=== PATIENT | female | born 1985 | race Caucasian/White ===

== ENCOUNTER 2020-04-04 13:44 | Emergency (ER) | payer MEDICAID ==
[~2020-04-04] VITALS: Ht 180.3 cm; Wt 65.0 kg
[2020-04-04 13:50] VITALS: BP 137/90
--- NOTE | 2020-04-04 14:50 | RAD ---
ANKLE LEFT 3V History: Reason: INJURY / Spl. Instructions: / History: Technique: 3 views left ankle. Comparison: None. Findings: Normal alignment. Symmetric mortise. Lateral ankle soft tissue swelling. No fracture. Impression: 1. No acute osseous abnormality. 2. Lateral ankle soft tissue swelling. Electronically signed by: Doug Herrera DO (04/04/2020 2:47 PM) [id number]
--- NOTE | 2020-04-04 15:01 | PHYS DOC ---
General Adult EDM: Chief Complaint: ANKLE PROBLEM HPI: HPI: 34 yo F who denies any past medical history presents the ED with complaints of left lateral ankle pain that started last night around 6 PM after patient was moving a table and it landed on her left osei. States she sprained her left ankle approximately 2 months ago, had no x-rays at that time. LMP was 3 weeks ago. No recent antibiotics or fluoroquinolone use. Is a daily tobacco user. Did not her head or lose consciousness. Is not on any anticoagulants/takes no medications. Is able to bear weight. ROS: Denies associated fever, chills, cough, dyspnea, sore throat, headache, neck stiffness, chest pain, dyspnea, nausea, vomiting, diarrhea, sensory or motor deficits, skin color changes. Allergies: Allergies: Allergies Coded Allergies Type Severity Reaction Last Updated Verified No Known Drug Allergies 04/04/20 No Physical Exam: PE: Constitutional: Well developed, well nourished, no acute distress, non-toxic appearance. [] HENT: Normocephalic, atraumatic, bilateral external ears normal, oropharynx moist, no oral exudates, nose normal. [] Eyes: EOMI, conjunctiva normal, no discharge. [] Neck: Normal range of motion, no tenderness, supple, no stridor. [] Cardiovascular:Heart rate regular rhythm, no murmur [] Lungs & Thorax: Bilateral breath sounds clear to auscultation [] Abdomen: Bowel sounds normal, soft, no tenderness, no masses, no pulsatile masses. [] Skin: Warm, dry, no erythema, Back: No tenderness, no CVA tenderness. [] Extremities: No tenderness, no cyanosis, no clubbing, ROM intact, left lateral malleoli with swelling, petechia over distal anterior left osei Neurologic: Alert and oriented X 3, normal motor function, normal sensory function, no focal deficits noted. [] Psychologic: Affect normal, judgement normal, mood normal. [] EKG: EKG: [] Radiology/Procedures: Radiology/Procedures: []IMAGING REPORT Signed PATIENT: LIBAN BAZAN ACCOUNT: [id number] : 1985 LOCATION: ER AGE: 34 SEX: F EXAM STATUS: REG ER ORD. PHYSICIAN: ROBERT VAZQUEZ DO REASON: INJURY PROCEDURE: ANKLE LEFT 3V ANKLE LEFT 3V History: Reason: INJURY / Spl. Instructions: / History: Technique: 3 views left ankle. Comparison: None. Findings: Normal alignment. Symmetric mortise. Lateral ankle soft tissue swelling. No fracture. Impression: 1. No acute osseous abnormality. 2. Lateral ankle soft tissue swelling. Electronically signed by: Doug Herrera DO (04/04/2020 2:47 PM) [id number] DICTATED AND SIGNED BY: DOUG HERRERA DO DATE: 04/04/20 1447 CC: PCP,UNKNOWN; ROBERT VAZQUEZ DO ~ Course & Med Decision Making: Course & Med Decision Making Pertinent Labs and Imaging studies reviewed. (See chart for details) Concern for traumatic left ankle sprain -patient will be provided splint and crutches, recommended conservative management w/rice and nsaids. Strict ED return precautions given for severe pain and neurovascular deficits. Encouraged urgent outpatient follow-up with PMD and orthopedic surgery. Life-threatening processes were considered but are low suspicion at this time, given history and physical exam. All patient's questions were answered and pt was stable at time of discharge. Differential includes fracture, dislocation, laceration, osteomyelitis, compartment syndrome, neurovascular injury or deficit, infection (abscess, cellulitis, septic arthritis) I spoken with the patient and her caregivers. I explained the patient's condition, diagnoses and treatment plan based on the information available to me at this time. I have answered the patient and her caregiver's questions and addressed any concerns. The patient and her caregivers have a good understanding of patient's diagnosis, condition and treatment plan as can be expected at this point. Vital signs have been stable. Patient's condition is stable and appropriate for discharge from the emergency department. Patient will pursue further outpatient evaluation with primary care physician or other designated or consulting physician as outlined in the discharge instructions. The patient and/or caregivers are agreeable to this plan of care and follow-up instructions have been explained in detail. The patient and/or caregivers have received these instructions in written form and have expressed an understanding of the discharge instructions. The patient and/or caregivers are aware that any significant change of condition or worsening of symptoms should prompt immediate return to this or the closest emergency department or call to 911. Violeta Disclaimer: Violeta Disclaimer: This electronic medical record was generated, in whole or in part, using a voice recognition dictation system. Departure Departure: Impression: Primary Impression: Left ankle sprain Additional Impression: Traumatic ecchymosis of ankle Disposition: 01 HOME/RESIDENCE PRIOR TO ADM Condition: STABLE Referrals: PCP,UNKNOWN (PCP) Patient Instructions: Ankle Sprain Additional Instructions: Miguel Pelaez MD* [id number] [facility], [address] [address] Justification of Admission: Justification of Admission: Justification of Admission Dx: N/A ROBERT VAZQUEZ DO Apr 04, 2020 15:01
== END 2020-04-04 15:31 | disposition home or self-care (01) ==
LOC: ER 13:44
DX: S93.402A Sprain of unspecified ligament of left ankle, initial encounter (principal); W20.8XXA Other cause of strike by thrown, projected or falling object, initial encounter; Y93.89 Activity, other specified; Y92.89 Other specified places as the place of occurrence of the external cause; Y99.8 Other external cause status
CPT/HCPCS: 73610; 99283; L4350